=== PATIENT | female | born 1950 | race African-American/Black ===

== ENCOUNTER 2017-02-11 06:04 | Emergency (ER) | payer MEDICAID, OTHER ==
[~2017-02-11] VITALS: Ht 167.6 cm; Wt 84.0 kg
[2017-02-11] MEDS ORDERED: KETOROLAC 60MG/2ML VIAL IM ONE (07:30)
[2017-02-11 07:33] VITALS: BP 144/93
== END 2017-02-11 10:02 | disposition home or self-care (01) ==
LOC: ER 07:56
DX: M25.552 Pain in left hip (principal); M19.90 Unspecified osteoarthritis, unspecified site; F12.10 Cannabis abuse, uncomplicated; F17.210 Nicotine dependence, cigarettes, uncomplicated; Z98.51 Tubal ligation status; Z88.8 Allergy status to other drugs, medicaments and biological substances; Z91.018 Allergy to other foods
CPT/HCPCS: 73502; 96372; 99284; J1885; Z7610